=== PATIENT | female | born 1975 | race Two or more races ===

== ENCOUNTER 2016-12-02 23:08 | Emergency (ER) | payer OTHER ==
[2016-12-02 23:40] VITALS: BP 170/90; PULSE 87; BMI 44.1
[2016-12-03 01:17] LABS: BASOPHIL 0.7 % (0-2.0); MCH 28.4 pg (25.7-33.7); MCHC 32.1 g/dl (32.0-36.0); MEAN CELL VOLUME 88.5 fl (80-96); MEAN PLT VOLUME 9.9 fl (7.5-11.1); NEUTROPHILS 71.3 % (42.8-82.8); PLATELET COUNT 145 K/MM3 (134-434); RDW 16.2 % (11.6-15.6); URINE APPEARANCE CLEAR; URINE BILIRUBIN NEGATIVE (NEGATIVE); URINE COLOR COLORLESS; URINE GLUCOSE (UA) 3+ (NEGATIVE); URINE KETONE TRACE (NEGATIVE); URINE NITRITE NEGATIVE (NEGATIVE); URINE UROBILINOGEN NEGATIVE E.U./dl (0.2-1.0); WHITE BLOOD COUNT 7.3 K/mm3 (4.0-10.0)
--- NOTE | 2016-12-03 01:27 | PDOC ---
History of Present Illness - General Chief Complaint: Blood Sugar Problem Stated Complaint: SHORTNESS OF BREATH Time Seen by Provider: 12/03/16 00:34 History Source: Patient Exam Limitations: No Limitations - History of Present Illness Initial Comments: 12/03/16 01:27 41yo Female patient presented to ED via EMS c/o elevated blood sugar level greater than 600. Patient believes her insulin pump was not attached to her skin appropriately and the insulin was not delivered. Patient reports she is ESRD; receives dialysis three times a week MWF. Last treatment on Thursday with 4 L removed. Timing/Duration: unsure Modifying Factors: worse with: cold therapy, eating, immobilization, medication , movement, rest, other Associated Symptoms: denies: denies symptoms, chest pain, cough, diaphoresis, fever/chills, headaches, loss of appetite, malaise, nausea/vomiting, rash, seizure, shortness of breath, syncope, weakness, other Aspirin Received prior to arrival: No: no aspirin today, unknown, 81 mg x 1, 81 mg x 2, 81 mg x 3, 81 mg x 4, 325 mg x 1, provided at home, provided by EMS, provided by ED [facility] Contraindications(Core Measure): No: Allergy, Other, Active Blding w/i 24 hrs., Plavix, Receiving Warfarin Beta Ramila Contraindications(Core Measure): No: Not Prescribed, Allergy, Bradycardia (HR <60bpm), Advanced Heart Block, Pacemaker, Other Past History - Travel Traveled outside of the country in the last 30 days: No Close contact w/someone who was outside of country & ill: No - Past Medical History Allergies/Adverse Reactions: Allergies Allergy/AdvReac Type Severity Reaction Status Date / Time No Known Allergies Allergy Verified 09/26/15 06:22 Home Medications: Ambulatory Orders Calcium Acetate [Phoslo -] 667 mg PO TIDCM 09/17/15 Gabapentin [Neurontin] 0 mg PO HS 09/17/15 Insulin Glulisine [Apidra] 0 unit SQ ASDIR 09/17/15 Levothyroxine [Synthroid -] 50 mcg PO DAILY 09/17/15 Metoprolol Succinate [Toprol XL -] 100 mg PO DAILY 09/17/15 Nifedipine [Nifedical Xl] 60 mg PO DAILY 09/17/15 Azithromycin [Zithromax Z-GIRISH (5 DAYS) -] 250 mg PO ASDIR #6 tablet 09/26/15 Diabetes: Yes Dialysis: Yes (m-w-f) HTN: Yes Thyroid Disease: Yes - Immunization History Immunization Up to Date: Yes - Psycho/Social/Smoking Cessation Hx Anxiety: No Suicidal Ideation: No Smoking History: Never smoked Have you smoked in the past 12 months: No Information on smoking cessation initiated: No Hx Alcohol Use: No Drug/Substance Use Hx: No Substance Use Type: None Review of Systems - Review of Systems Able to Perform ROS?: Yes Is the patient limited Maltese proficient: No Constitutional: No: Chills, Fever HEENTM: Yes: Other (LEGALLY BLIND) Respiratory: No: Cough, Shortness of Breath Cardiac (ROS): No: Chest Pain, Edema ABD/GI: No: Diarrhea, Nausea, Vomiting : No: Burning, Dysuria, Hematuria Musculoskeletal: No: Back Pain Integumentary: No: Bruising, Rash Neurological: No: Headache, Numbness, Dizziness All Other Systems: Reviewed and Negative *Physical Exam - Vital Signs Last Vital Signs Temp Pulse Resp BP Pulse Ox 87 18 170/90 99 12/02/16 23:38 12/02/16 23:38 12/02/16 23:38 12/02/16 23:38 - Physical Exam General Appearance: Yes: Nourished Neck: positive: Trachea midline, Supple Respiratory/Chest: positive: Lungs Clear, Normal Breath Sounds Cardiovascular: positive: Regular Rhythm, Regular Rate Gastrointestinal/Abdominal: positive: Normal Bowel Sounds, Soft Musculoskeletal: positive: Normal Inspection Extremity: positive: Normal Capillary Refill, Normal Inspection, Normal Range of Motion Integumentary: positive: Normal Color, Dry, Warm Neurologic: positive: spray pilot II-XII NML intact, Normal Mood/Affect, Normal Response ED Treatment Course - LABORATORY CBC & Chemistry Diagram: 12/03/16 00:58 12/03/16 00:58 *DC/Admit/Observation/Transfer Diagnosis at time of Disposition: Hyperglycemia due to type 1 diabetes mellitus - Discharge Dispostion Disposition: HOME Condition at time of disposition: Stable Admit: No - Patient Instructions Printed Discharge Instructions: DI for Hyperglycemia -- Adult Additional Instructions: CONTINUE WITH DIALYSIS SCHEDULED. ALWAYS CHECK THAT INSULIN PUMP IS ATTACHED AND WORKING PROPERLY. RETURN IF ANY CONCERNS FOR FURTHER EVALUATION. Print Language: FILIPINO
[2016-12-03 01:57] LABS: ALBUMIN 3.7 g/dl (3.4-5.0); BILIRUBIN,TOTAL 0.6 mg/dL (0.2-1.0); CALCIUM 8.4 mg/dL (8.5-10.1); MAGNESIUM 2.3 mg/dL (1.8-2.4); PHOSPHOROUS 3.1 mg/dL (2.5-4.9); TOT PROT 7.2 g/dl (6.4-8.2)
[2016-12-03 02:03] LABS: URINE BLOOD 1+ (NEGATIVE); URINE LEUK ESTERASE 1+ (NEGATIVE); URINE PROTEIN 1+ (NEGATIVE)
--- NOTE | 2016-12-03 02:09 | PDOC ---
*Physical Exam - Vital Signs Last Vital Signs Temp Pulse Resp BP Pulse Ox 87 18 170/90 99 12/02/16 23:38 12/02/16 23:38 12/02/16 23:38 12/02/16 23:38 ED Treatment Course - LABORATORY CBC & Chemistry Diagram: 12/03/16 00:58 12/03/16 00:58 - ADDITIONAL ORDERS Additional order review: Laboratory Results 12/03/16 12/03/16 00:58 00:58 Serum , Qual Negative Urine Color Colorless Urine Appearance Clear Urine pH 8.0 Ur Specific Marshall 1.010 Urine Protein 1+ H Urine Glucose (UA) 3+ H Urine Ketones Trace H Urine Blood 1+ H Urine Nitrite Negative Urine Bilirubin Negative Urine Urobilinogen Negative Ur Leukocyte Esterase 1+ H 12/03/16 00:58 RBC 3.76 MCV 88.5 MCHC 32.1 RDW 16.2 H MPV 9.9 Neutrophils % 71.3 Lymphocytes % 19.9 D Monocytes % 7.1 Eosinophils % 1.0 Basophils % 0.7 Medical Decision Making - Medical Decision Making 12/03/16 02:08 agree with care from SANAM Geiger *DC/Admit/Observation/Transfer Diagnosis at time of Disposition: Hyperglycemia due to type 1 diabetes mellitus - Discharge Dispostion Disposition: HOME Condition at time of disposition: Stable - Patient Instructions Printed Discharge Instructions: DI for Hyperglycemia -- Adult Additional Instructions: CONTINUE WITH DIALYSIS SCHEDULED. ALWAYS CHECK THAT INSULIN PUMP IS ATTACHED AND WORKING PROPERLY. RETURN IF ANY CONCERNS FOR FURTHER EVALUATION. Print Language: SPANISH
[2016-12-03 02:18] LABS: CREATININE 8.9 mg/dL (0.55-1.02)
[2016-12-03 02:36] LABS: URINE MUCUS RARE; URINE WBC 9 /hpf (3-5)
[2016-12-03] MEDS ORDERED: INSULIN REGULAR HUMAN 100 UNITS/ML *VIAL SQ ONE (02:51)
[2016-12-03] MEDS ORDERED: INSULIN REGULAR HUMAN 100 UNITS/ML *VIAL ONE (02:58)
== END 2016-12-03 03:07 | disposition home or self-care (01) ==
LOC: JER 23:08
PROC: 3E013VG Introduction of Insulin into Subcutaneous Tissue, Percutaneous Approach (ICD-10-PCS; principal; 2016-12-02)
DX: E10.65 Type 1 diabetes mellitus with hyperglycemia (principal); Z79.4 Long term (current) use of insulin; Z96.41 Presence of insulin pump (external) (internal); I12.0 Hypertensive chronic kidney disease with stage 5 chronic kidney disease or end stage renal disease; N18.6 End stage renal disease; Z99.2 Dependence on renal dialysis; E07.9 Disorder of thyroid, unspecified
CPT/HCPCS: 36415; 80053; 81003; 81015; 83735; 84100; 84703; 85025; 96372; 99282-25

== ENCOUNTER 2017-02-03 14:06 | Observation (INO) | payer OTHER ==
[2017-02-03] MEDS ORDERED: ASPIRIN 81 MG CHEWABLE TABLETS PO ONE (14:48)
--- NOTE | 2017-02-03 14:53 | PDOC ---
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 She states that since Thursday, she has been experiencing intermittent mid-sternal hot-pressure/discomfort sensations that occasionally radiates to her back with associated lightheadedness, diaphoresis, palpitations and nausea. Initially, she attributed her symptoms to possible start of menopause, but now expresses concern her symptoms might be related to something different. She denies associated symptoms cough, fever, chills, headaches, neck pain, vomiting. Patient received full dialysis yesterday without complications, yesterday. She also reports her chronic shortness of breath on exertion, particularly when walking up a flight of stairs, but denies any recent change in her chronic symptoms. No leg pain/swelling. Allergies: No Known Drug Allergies. Past Surgical History: AV Fistula/Graft Social History: No ETOH and recreational drug use. Primary Care Physician: (Affiliated with [facility]) Nephrology: Receives hemodialysis in [place] on [address] [place] [address]. [phone] Remainder of the review of systems is negative. <Alee Maldonado - Last Filed: 02/03/17 14:55> <Catalina Willard - Last Filed: 02/03/17 22:38> - General Chief Complaint: Chest Pain Stated Complaint: CHEST PAIN Time Seen by Provider: 02/03/17 14:31 Past History <Alee Maldonado - Last Filed: 02/03/17 16:05> - Past Medical History Diabetes: Yes Dialysis: Yes (m-w-f) Disorders: Yes (esrd) HTN: Yes Thyroid Disease: Yes Other medical history: legally blind - Immunization History Immunization Up to Date: Yes - Psycho/Social/Smoking Cessation Hx Anxiety: Yes Suicidal Ideation: No Smoking History: Never smoked Have you smoked in the past 12 months: No Information on smoking cessation initiated: No Hx Alcohol Use: No Drug/Substance Use Hx: No Substance Use Type: None <Catalina Willard - Last Filed: 02/03/17 22:38> - Past Medical History Allergies/Adverse Reactions: Allergies Allergy/AdvReac Type Severity Reaction Status Date / Time No Known Allergies Allergy Verified 02/03/17 14:40 Home Medications: Ambulatory Orders Calcium Acetate [Phoslo -] 667 mg PO TID 09/17/15 Gabapentin [Neurontin] 100 mg PO DAILY 09/17/15 Levothyroxine [Synthroid -] 75 mcg PO DAILY 09/17/15 Carvedilol [Coreg -] 6.25 mg PO DAILY 02/03/17 Insulin Pump/Infus. Set/Meter [Accu-Chek Combo System] 1 each [facility] 02/03/17 Review of Systems - Review of Systems Able to Perform ROS?: Yes Comments:: 02/03/17 14:55 12 point review of systems is as per history of present illness and otherwise negative. <Alee Maldonado - Last Filed: 02/03/17 16:05> *Physical Exam - Vital Signs Last Vital Signs Temp Pulse Resp BP Pulse Ox 98.1 F 62 18 120/90 100 02/03/17 14:06 02/03/17 14:06 02/03/17 14:06 02/03/17 14:06 02/03/17 14:06 <Alee Maldonado - Last Filed: 02/03/17 16:05> - Vital Signs Last Vital Signs Temp Pulse Resp BP Pulse Ox 98.1 F 62 18 120/90 100 02/03/17 14:06 02/03/17 14:06 02/03/17 14:06 02/03/17 14:06 02/03/17 14:06 - Physical Exam Comments: 02/03/17 14:52 Physical exam Last Vital Signs Temp Pulse Resp BP Pulse Ox 98.1 F 62 18 120/90 100 02/03/17 14:06 02/03/17 14:06 02/03/17 14:06 02/03/17 14:06 02/03/17 14:06 GENERAL: The patient is awake, alert, and fully oriented, and in no apparent distress. HEAD: Normal with no signs of trauma. EYES: Sclera anicteric ENT: Moist mucous membranes. NECK: Normal range of motion, supple LUNGS: Breath sounds equal, clear to auscultation bilaterally. No wheezes, and no crackles. HEART: Regular rate and rhythm, normal S1 and S2 without murmur, rub or gallop. ABDOMEN: Soft, nontender, normoactive bowel sounds. No guarding, no rebound. No masses appreciated. EXTREMITIES: Normal range of motion, no edema. No clubbing or cyanosis. No cords, erythema, or tenderness. NEUROLOGICAL: Cranial nerves II through XII grossly intact. Normal speech, normal gait. PSYCH: Normal mood, normal affect. SKIN: Warm, Dry, <Catalina Willard - Last Filed: 02/03/17 22:38> ED Treatment Course - LABORATORY CBC & Chemistry Diagram: 02/03/17 15:45 02/03/17 15:45 <Alee Maldonado - Last Filed: 02/03/17 16:05> - LABORATORY CBC & Chemistry Diagram: 02/03/17 15:45 02/03/17 17:15 - RADIOLOGY Radiology Studies Ordered: Category Date Time Status CHEST X-RAY PORTABLE* [RAD] Stat Radiology 02/03/17 14:47 Ordered <Catalina Willard - Last Filed: 02/03/17 22:38> Medical Decision Making - Medical Decision Making 02/03/17 16:04 EXAM: RAD/CHEST X-RAY PORTABLE IMPRESSION: Single portable chest x-ray. Unremarkable contour of the cardiomediastinal silhouette. The lungs are well aerated. No evidence of vascular congestion, pulmonary infiltrates. No bulky hilar adenopathy is seen. No evidence of pleural effusion, or pneumothorax. EKG leads are noted. Intact visualized osseous structures. <Alee Maldonado - Last Filed: 02/03/17 16:05> - Medical Decision Making 02/03/17 14:49 Juvenile onset diabetic since the age of 17, with multiple complications, including CKD on dialysis Thursday and Thursday, retinopathy (legally blind), neuropathy, hypertension, who is on an insulin pump at this time She's been having episodes of chest discomfort which she describes as a hot feeling across her chest associated with chest pressure, and sometimes radiating to her back off and on since Thursday associated with diaphoresis, and feelings of dizziness and lightheadedness, as well as occasional palpitations She denies any recent intercurrent illnesses, fevers chills cough or any other associated complaints EKG Normal sinus rhythm 61, normal axis Normal AV and IV conduction time Normal QTC Normal EKG 41-year-old female with significant cardiac risk factors presents with chest discomfort off and on, will start cardiac workup, and give her aspirin 02/03/17 15:52 Chest x-ray-NAD 02/03/17 16:51 41-year-old female with multiple cardiac risk factors presents with chest pain/ pressure off and on Will place in observation, for serial enzymes, and cardiac workup, given her multiple cardiac risk factors 02/03/17 17:03 Labs hemolyzed and needs redraw per lab Laboratory Results - last 24 hr 02/03/17 02/03/17 02/03/17 15:45 15:45 17:15 WBC 6.4 RBC 3.87 Hgb 11.6 Hct 34.4 MCV 89.1 MCHC 33.6 RDW 16.0 H Plt Count 164 MPV 10.1 Sodium Cancelled 137 Potassium Cancelled 4.2 Chloride Cancelled 97 L Carbon Dioxide Cancelled 29 D Anion Gap Cancelled 11 BUN Cancelled 48 H D Creatinine Cancelled 8.3 H* Creat Clearance w eGFR Cancelled 5.34 Random Glucose Cancelled 149 H D Calcium Cancelled 8.7 Magnesium Cancelled Total Bilirubin Cancelled 0.5 AST Cancelled 15 ALT Cancelled 26 D Alkaline Phosphatase Cancelled 80 Creatine Kinase Cancelled 80 Troponin I Cancelled < 0.02 B-Natriuretic Peptide Cancelled 1433.44 H Total Protein Cancelled 7.1 Albumin Cancelled 3.6 <Catalina Willard - Last Filed: 02/03/17 22:38> *DC/Admit/Observation/Transfer - Attestations Scribe Attestion: 02/03/17 14:55 Documentation prepared by Alee Maldonado, acting as medical records technician for Catalina Willard MD. <Alee Maldonado - Last Filed: 02/03/17 16:05> - Discharge Dispostion Admit: Yes <Catalina Willard - Last Filed: 02/03/17 22:38> Diagnosis at time of Disposition: Chest pain, ESRD (end stage renal disease) on dialysis, Diabetes mellitus
[2017-02-03] MEDS ORDERED: ASPIRIN 81 MG CHEWABLE TABLETS ONE (15:20)
[2017-02-03 16:57] LABS: MCHC 33.6 g/dl (32.0-36.0); MEAN CELL VOLUME 89.1 fl (80-96); MEAN PLT VOLUME 10.1 fl (7.5-11.1); PLATELET COUNT 164 K/MM3 (134-434); WHITE BLOOD COUNT 6.4 K/mm3 (4.0-10.0)
--- NOTE | 2017-02-03 17:58 | EKG ---
Test Reason : Blood Pressure : / mmHG Vent. Rate : 061 BPM Atrial Rate : 061 BPM P-R Int : 128 ms QRS Dur : 070 ms QT Int : 430 ms P-R-T Axes : 035 055 048 degrees QTc Int : 432 ms NORMAL SINUS RHYTHM NORMAL ECG WHEN COMPARED WITH ECG OF 17-SEP-2015 08:35, NO SIGNIFICANT CHANGE WAS FOUND Confirmed by ANURAG BANDA MD ([id number]) on 02/03/2017 5:57:54 PM Referred By: Confirmed By:ANURAG BANDA MD
--- NOTE | 2017-02-03 18:01 | HP ---
CHIEF COMPLAINT: Mid sternal chest pressure, non radiating that feels "like burning and pressure". PCP: Dr. Livier Hutchison MD ([facility]) Nephrology: Receives hemodialysis in [place] on [address] [place] [address]. HISTORY OF PRESENT ILLNESS: Patient is a 41 year old female with a significant past medical history of hypertension, hyperlipidemia, heart murmur, neuropathy, insulin-dependent diabetes mellitus end-renal disease (on hemodialysis; MWF), ( last dialysis was yesterday 02/02/2017), hypothyroidism and is legally blind. She presented to the ED for chest pain. She states that since 01/31/17, she has been experiencing intermittent mid-sternal "burning discomfort" sensations that occasionally radiates to her back and left arm associated with diaphoresis, palpitations and nausea. She denies any fever, chills, headaches, neck pain, jaw pain. Her last dialysis was yesterday without complications. She is scheduled for dialysis tomorrow. She receives dialysis through her left arm fistula ER course was notable for: (1) BNP 1433 (2) Trop 0.02 (3) Bun 48/Creatinine 8.3 (4) implanted insulin pump Recent Travel: none PAST MEDICAL HISTORY: hypertension, hyperlipidemia, heart murmur, neuropathy, insulin-dependent diabetes mellitus end-renal disease (on hemodialysis; MWF), ( last dialysis was yesterday), hypothyroidism and legally blindness. PAST SURGICAL HISTORY: left arm fisula, insulin pump placement, Social History: Smoking: denies Alcohol: denies Drugs: denies Family History: She is , lives with her , no children. Mother is alive, father . Allergies: none reported No Known Allergies Allergy (Verified 02/03/17 14:40) HOME MEDICATIONS: Home Medications Medication Instructions Recorded Calcium Acetate [Phoslo -] 667 mg PO TIDCM 09/17/15 Gabapentin [Neurontin] 0 mg PO HS 09/17/15 Insulin Glulisine [Apidra] 0 unit SQ ASDIR 09/17/15 Levothyroxine [Synthroid -] 50 mcg PO DAILY 09/17/15 Metoprolol Succinate [Toprol XL -] 100 mg PO DAILY 09/17/15 Nifedipine [Nifedical Xl] 60 mg PO DAILY 09/17/15 Azithromycin [Zithromax Z-GIRISH (5 250 mg PO ASDIR #6 tablet 09/26/15 DAYS) -] REVIEW OF SYSTEMS CONSTITUTIONAL: Absent: fever, chills, diaphoresis, generalized weakness, malaise, loss of appetite, HEENT: Absent: rhinorrhea, nasal congestion, throat pain, throat swelling, difficulty swallowing, mouth swelling, ear pain, eye pain, visual changes CARDIOVASCULAR: Absent: chest pain, syncope, palpitations, irregular heart rate, peripheral edema RESPIRATORY: + intermittent SOB, + dyspnea on exertion Absent: cough, orthopnea, wheezing, stridor, hemoptysis GASTROINTESTINAL: Absent: abdominal pain, abdominal distension, nausea, vomiting, diarrhea, constipation, melena, hematochezia GENITOURINARY: Absent: dysuria, frequency, urgency, hesitancy, hematuria, flank pain, genital pain MUSCULOSKELETAL: Absent: myalgia, arthralgia, joint swelling, back pain, neck pain SKIN: Absent: rash, itching, pallor HEMATOLOGIC/IMMUNOLOGIC: Absent: easy bleeding, easy bruising, lymphadenopathy, frequent infections ENDOCRINE: Absent: unexplained weight gain, unexplained weight loss, heat intolerance, cold intolerance NEUROLOGIC: Absent: headache, focal weakness or paresthesias, dizziness, unsteady gait, seizure, mental status changes, bladder or bowel incontinence PSYCHIATRIC: Absent: anxiety, depression, suicidal or homicidal ideation, hallucinations. PHYSICAL EXAMINATION Vital Signs - 24 hr 02/03/17 14:06 Temperature 98.1 F Pulse Rate 62 Respiratory 18 Rate Blood Pressure 120/90 O2 Sat by Pulse 100 Oximetry (%) GENERAL: Awake, alert, and fully oriented, in no acute distress. HEAD: Normal with no signs of trauma. EYES: legally blind secondary to diabethic retinopathy EARS, NOSE, THROAT: Ears normal, nares patent, oropharynx clear without exudates. Moist mucous membranes. NECK: Normal range of motion, supple without lymphadenopathy, JVD, or masses. LUNGS: Breath sounds equal, clear to auscultation bilaterally. No wheezes, and no crackles. No accessory muscle use. HEART: Regular rate and rhythm, +murmur ABDOMEN: Soft, nontender, not distended, normoactive bowel sounds, + insulin pump MUSCULOSKELETAL: Normal range of motion at all joints. No bony deformities or tenderness. No CVA tenderness. UPPER EXTREMITIES: Left arm fistula + bruit + thrill LOWER EXTREMITIES: 2+ pulses, warm, well-perfused. No calf tenderness. No peripheral edema. NEUROLOGICAL: Normal speech. Normal gait. PSYCHIATRIC: Cooperative. Good eye contact. Appropriate mood and affect. SKIN: Warm, dry, normal turgor, no rashes or lesions noted. Laboratory Results - last 24 hr 02/03/17 02/03/17 15:45 15:45 WBC 6.4 RBC 3.87 Hgb 11.6 Hct 34.4 MCV 89.1 MCHC 33.6 RDW 16.0 H Plt Count 164 MPV 10.1 Sodium Cancelled Potassium Cancelled Chloride Cancelled Carbon Dioxide Cancelled Anion Gap Cancelled BUN Cancelled Creatinine Cancelled Creat Clearance w eGFR Cancelled Random Glucose Cancelled Calcium Cancelled Magnesium Cancelled Total Bilirubin Cancelled AST Cancelled ALT Cancelled Alkaline Phosphatase Cancelled Creatine Kinase Cancelled Troponin I Cancelled B-Natriuretic Peptide Cancelled Total Protein Cancelled Albumin Cancelled ASSESSMENT/PLAN: Patient is a 41 year old female with a significant past medical history of hypertension, hyperlipidemia, heart murmur, neuropathy, insulin-dependent diabetes mellitus end-renal disease (on hemodialysis; MWF), (last dialysis was yesterday 02/02/2017), hypothyroidism and legally blindness. She presented to the ED for chest pain. She states that since 01/31/17, she has been experiencing intermittent mid-sternal "burning discomfort" sensations that occasionally radiates to her back and left arm associated with diaphoresis, palpitations and nausea. She denies any fever, chills, headaches, neck pain, jaw pain. Her last dialysis was yesterday without complications. She is scheduled for dialysis tomorrow. She receives dialysis through her left arm fistula. On exam, she denied shortness of breath, jaw pain. Cardiology: Chest Pain - acute Assessment/Plan: EKG 02/03/2017, Normal sinus rhythm @61, no changes when compared to EKG of 09/17/2015 Troponin x 1 negative, trending Will start on ASA 81mg Echo ordered for a.m. Oxygen as needed Monitor on telemetry Cardiology consulted Hypertension - chronic Assessment/Plan: BP controlled on Carvedilol 6.5mg daily Monitor BP trend, titrate as needed Hyperlipidemia - chronic Assessment/Plan: Lipid panel in the a.m. Endocrine: End Stage Renal Disease Assessment/Plan: on a MWF dialysis schedule, last dialysis without complications Receives dialysis from left arm fistula Dr. 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 Although legally blind, she has managed her own insulin pump She has a history of falls F.E.N. Fluids: no IVF, can take PO Electrolytes: monitor: renal patient, phos levels ordered for a.m. Nutrition: diabetic diet Prophylaxis: GI: Protonix, Colace DVT: Heparin TID Disposition: Requires inpatient tele observation. Full Code. Visit type - Emergency Visit Emergency Visit: Yes ED Registration Date: 02/03/17 Care time: The patient presented to the Emergency Department on the above date and was hospitalized for further evaluation of their emergent condition. - New Patient This patient is new to me today: Yes Date on this admission: 02/03/17 - Critical Care Critical Care patient: No
[2017-02-03 18:20] LABS: ALBUMIN 3.6 g/dl (3.4-5.0); ALK PHOS 80 U/L (45-117); ANION GAP 11 (8-16); BILIRUBIN,TOTAL 0.5 mg/dL (0.2-1.0); CALCIUM 8.7 mg/dL (8.5-10.1); CO2 29 mmol/L (21-32); GLUCOSE,RANDOM 149 mg/dL (74-106); SGOT/AST 15 U/L (15-37); SGPT/ALT 26 U/L (12-78); TOT PROT 7.1 g/dl (6.4-8.2)
[2017-02-03 18:25] LABS: TROPONIN I < 0.02 ng/ml (0.00-0.05)
[2017-02-03 18:29] LABS: CREATININE 8.3 mg/dL (0.55-1.02)
[2017-02-03] MEDS ORDERED: PATIENT'S OWN MEDICATION (NON-FORMULARY) (Insulin Pump/Infus. Set/Meter [Accu-Chek Combo S MC SCH (20:00)
[2017-02-03] MEDS ORDERED: CALCIUM ACETATE 667 MG CAPSULE (FP) PO SCH (22:00)
[2017-02-03] MEDS: HEPARIN NA (PORCINE) 5,000 UNITS/ML 1ML VIAL SQ SCH (22:57)
[2017-02-03 23:16] LABS: TROPONIN I < 0.02 ng/ml (0.00-0.05)
[2017-02-04 04:24] VITALS: BMI 42.8
[2017-02-04] MEDS: HEPARIN NA (PORCINE) 5,000 UNITS/ML 1ML VIAL SQ SCH ×3 (06:29→21:10)
[2017-02-04] MEDS ORDERED: LEVOTHYROXINE NA 75 MCG TABLET (FP) PO SCH (07:00)
[2017-02-04 08:13] LABS: BASOPHIL 0.5 % (0-2.0); EOSINOPHIL 1.9 % (0-4.5); MCH 29.6 pg (25.7-33.7); MCHC 33.5 g/dl (32.0-36.0); MEAN CELL VOLUME 88.6 fl (80-96); MEAN PLT VOLUME 9.7 fl (7.5-11.1); NEUTROPHILS 58.9 % (42.8-82.8); PLATELET COUNT 129 K/MM3 (134-434); RDW 16.5 % (11.6-15.6); WHITE BLOOD COUNT 5.2 K/mm3 (4.0-10.0)
[2017-02-04] MEDS ORDERED: LEVOTHYROXINE NA 88 MCG TABLET (FP) PO SCH (08:37)
[2017-02-04] MEDS: CALCIUM ACETATE 667 MG CAPSULE (FP) PO SCH ×3 (09:05→18:48)
--- NOTE | 2017-02-04 09:11 | PN ---
Physical Exam: SUBJECTIVE: Patient seen and examined OBJECTIVE: Vital Signs Period Temp Pulse Resp BP Sys/Aponte Pulse Ox Last 24 Hr 97.5 F-97.8 F 60-84 18-20 118-144/52-76 96-100 GENERAL: The patient is awake, alert, and fully oriented, in no acute distress. HEAD: Normal with no signs of trauma. EYES: PERRL, extraocular movements intact, sclera anicteric, conjunctiva clear. No ptosis. ENT: Ears normal, nares patent, oropharynx clear without exudates, moist mucous membranes. NECK: Trachea midline, full range of motion, supple. LUNGS: Breath sounds equal, clear to auscultation bilaterally, no wheezes, no crackles, no accessory muscle use. HEART: Regular rate and rhythm, S1, S2 without murmur, rub or gallop. ABDOMEN: Soft, nontender, nondistended, normoactive bowel sounds, no guarding, no rebound, no hepatosplenomegaly, no masses. EXTREMITIES: 2+ pulses, warm, well-perfused, no edema. NEUROLOGICAL: Cranial nerves II through XII grossly intact. Normal speech, gait not observed. PSYCH: Normal mood, normal affect. SKIN: Warm, dry, normal turgor, no rashes or lesions noted Laboratory Results - last 24 hr 02/03/17 02/03/17 02/03/17 17:15 20:28 22:00 WBC RBC Hgb Hct MCV MCHC RDW Plt Count MPV Neutrophils % Lymphocytes % Monocytes % Eosinophils % Basophils % Sodium 137 Potassium 4.2 Chloride 97 L Carbon Dioxide 29 D Anion Gap 11 BUN 48 H D Creatinine 8.3 H* Creat Clearance w eGFR 5.34 Random Glucose 149 H D Calcium 8.7 Total Bilirubin 0.5 AST 15 ALT 26 D Alkaline Phosphatase 80 Creatine Kinase 80 68 Troponin I < 0.02 < 0.02 B-Natriuretic Peptide 1433.44 H Total Protein 7.1 Albumin 3.6 TSH 3.90 H 02/03/17 02/04/17 22:00 05:45 WBC 5.2 RBC 3.69 Hgb 10.9 Hct 32.6 MCV 88.6 MCHC 33.5 RDW 16.5 H Plt Count 129 L D MPV 9.7 Neutrophils % 58.9 Lymphocytes % 31.6 D Monocytes % 7.1 Eosinophils % 1.9 D Basophils % 0.5 Sodium Potassium Chloride Carbon Dioxide Anion Gap BUN Creatinine Creat Clearance w eGFR Random Glucose Calcium Total Bilirubin AST ALT Alkaline Phosphatase Creatine Kinase Troponin I < 0.02 B-Natriuretic Peptide Total Protein Albumin TSH Active Medications Generic Name Dose Route Start Last Admin Trade Name Freq PRN Reason Stop Dose Admin Aspirin 81 mg 02/04/17 10:00 Ecotrin - PO DAILY [facility] Calcium Acetate 667 mg 02/04/17 08:00 Phoslo - PO TIDCM [facility] Carvedilol 6.25 mg 02/04/17 10:00 Coreg - PO DAILY [facility] Gabapentin 100 mg 02/04/17 10:00 Neurontin - PO DAILY [facility] Heparin Sodium (Porcine) 5,000 unit 02/03/17 22:00 02/04/17 06:29 Heparin - SQ Not Given TID [facility] Levothyroxine Sodium 88 mcg 02/04/17 08:37 Synthroid - PO DAILY@0700 [facility] ASSESSMENT/PLAN:
[2017-02-04 09:17] LABS: ALBUMIN 3.4 g/dl (3.4-5.0); BILIRUBIN,TOTAL 0.4 mg/dL (0.2-1.0); CALCIUM 8.9 mg/dL (8.5-10.1); MAGNESIUM 2.3 mg/dL (1.8-2.4); PHOSPHOROUS 4.2 mg/dL (2.5-4.9); TOT PROT 6.7 g/dl (6.4-8.2)
[2017-02-04 09:36] LABS: TROPONIN I < 0.02 ng/ml (0.00-0.05)
[2017-02-04] MEDS: ASPIRIN COATED 81 MG TABLET.EC PO SCH (10:05)
[2017-02-04] MEDS: GABAPENTIN 100 MG CAPSULE (FP) PO SCH (10:05)
[2017-02-04] MEDS: CARVEDILOL 6.25 MG TABLET (FP) PO SCH (10:05)
[2017-02-04 10:13] LABS: CREATININE 9.5 mg/dL (0.55-1.02)
--- NOTE | 2017-02-04 10:30 | CON.CARD ---
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 She states that since Thursday, she has been experiencing intermittent mid-sternal hot-pressure/discomfort sensations that occasionally radiates to her back with associated lightheadedness, diaphoresis, palpitations and nausea. Initially, she attributed her symptoms to possible start of menopause, but now expresses concern her symptoms might be related to something different. She denies associated symptoms cough, fever, chills, headaches, neck pain, vomiting. Patient received full dialysis yesterday without complications, yesterday. 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) Cardio/Vascular: Yes: HTN Renal/: Yes: Renal Failure, Hemodialysis ...: No Endocrine: Yes: Diabetes Mellitus, Hypothyroidism - Past Surgical History Past Surgical History: Yes: AV Fistula/Graft - Alcohol/Substance Use Hx Alcohol Use: No History of Substance Use: reports: None - Smoking History Smoking history: Never smoked Have you smoked in the past 12 months: No Home Medications - Allergies Allergies/Adverse Reactions: Allergies Allergy/AdvReac Type Severity Reaction Status Date / Time No Known Allergies Allergy Verified 02/03/17 14:40 - Home Medications Home Medications: Ambulatory Orders Calcium Acetate [Phoslo -] 667 mg PO TID 09/17/15 Gabapentin [Neurontin] 100 mg PO DAILY 09/17/15 Levothyroxine [Synthroid -] 75 mcg PO DAILY 09/17/15 Carvedilol [Coreg -] 6.25 mg PO DAILY 02/03/17 Insulin Pump/Infus. Set/Meter [Accu-Chek Combo System] 1 each MC ASDIR 02/03/17 Review of Systems - Review of Systems Constitutional: reports: No Symptoms Eyes: reports: No Symptoms HENT: reports: No Symptoms Neck: reports: No Symptoms Cardiovascular: reports: No Symptoms Gastrointestinal: reports: No Symptoms Genitourinary: reports: No Symptoms Breasts: reports: No Symptoms Reported Musculoskeletal: reports: No Symptoms Integumentary: reports: No Symptoms Neurological: reports: No Symptoms Endocrine: reports: No Symptoms Hematology/Lymphatic: reports: No Symptoms Psychiatric: reports: No Symptoms Vital Signs: Vital Signs Temperature 97.5 F L 02/04/17 02:00 Pulse Rate 65 02/04/17 10:00 Respiratory Rate 18 02/04/17 10:00 Blood Pressure 126/69 02/04/17 10:00 O2 Sat by Pulse Oximetry (%) 96 02/03/17 23:00 Constitutional: Yes: Well Nourished, No Distress, Calm Eyes: Yes: WNL, Conjunctiva Clear, EOM Intact HENT: Yes: WNL, Atraumatic, Normocephalic Neck: Yes: WNL, Supple, Trachea Midline Respiratory: Yes: WNL, Regular, CTA Bilaterally Gastrointestinal: Yes: WNL, Normal Bowel Sounds Renal/: Yes: WNL Cardiovascular: Yes: WNL, Regular Rate and Rhythm Musculoskeletal: Yes: WNL Extremities: Yes: WNL Integumentary: Yes: WNL Neurological: Yes: WNL, Alert, Oriented ...Motor Strength: WNL Psychiatric: Yes: WNL, Alert, Oriented - Other Data Labs, Other Data: CBC, BMP 02/04/17 05:45 02/04/17 05:45 Troponin, BNP 02/03/17 02/03/17 02/03/17 17:15 20:28 22:00 Troponin I < 0.02 < 0.02 < 0.02 B-Natriuretic Peptide 1433.44 H 02/04/17 05:45 Troponin I < 0.02 B-Natriuretic Peptide Troponin, BNP 02/03/17 02/03/17 02/03/17 17:15 20:28 22:00 Troponin I < 0.02 < 0.02 < 0.02 B-Natriuretic Peptide 1433.44 H 02/04/17 05:45 Troponin I < 0.02 B-Natriuretic Peptide Imaging - Results Chest X-ray: Image Reviewed (no i/e) EKG: Image Reviewed (sr wnl) Problem List - Problems (1) Chest pain Code(s): R07.9 - CHEST PAIN, UNSPECIFIED (2) Diabetes mellitus Code(s): E11.9 - TYPE 2 DIABETES MELLITUS WITHOUT COMPLICATIONS (3) ESRD (end stage renal disease) on dialysis Code(s): N18.6 - END STAGE RENAL DISEASE Z99.2 - DEPENDENCE ON RENAL DIALYSIS (4) Abrasion Code(s): T14.8 - OTHER INJURY OF UNSPECIFIED BODY REGION (5) Anemia Code(s): D64.9 - ANEMIA, UNSPECIFIED (6) Cold (disease) Code(s): J00 - ACUTE NASOPHARYNGITIS [COMMON COLD] (7) Dialysis complication Code(s): T82.898A - OTH COMPLICATION OF VASCULAR PROSTH DEV/GRFT, INIT Qualifiers: Encounter type: initial encounter Qualified Code(s): T82.898A - Other specified complication of vascular prosthetic devices, implants and grafts, initial encounter (8) Hyperglycemia due to type 1 diabetes mellitus Code(s): E10.65 - TYPE 1 DIABETES MELLITUS WITH HYPERGLYCEMIA (9) Hypertension Code(s): I10 - ESSENTIAL (PRIMARY) HYPERTENSION (10) Hypothyroid Code(s): E03.9 - HYPOTHYROIDISM, UNSPECIFIED Assessment/Plan chest pain sx esrd htn legal blindness DM - juvenile onset hld neuropathy Plan cont asa r/o mi echo MIBI stress test in am for risk stratification.
--- NOTE | 2017-02-04 13:21 | CONSULT ---
Consult Consult Specialty:: Nephrology Reason for Consultation:: ESRD - History of Present Illness Chief Complaint: chest pain History of Present Illness: Pt is a 41 year old female with pmhx of ESRD, chol, neuropathy and DM who presents to the ER complaining of chest pain. She says she had the pain since Thursday. She denies palpitations. She describes the pain as a burning sensation. She is awake and alert. I was called to evaluate her for ESRD. She last went to HD on Thursday. Her HD unit is in [place]. She denies shortness of breath. 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) Cardio/Vascular: Yes: HTN Renal/: Yes: Renal Failure, Hemodialysis ...: No Endocrine: Yes: Diabetes Mellitus, Hypothyroidism - Past Surgical History Past Surgical History: Yes: AV Fistula/Graft - Alcohol/Substance Use Hx Alcohol Use: No History of Substance Use: reports: None - Smoking History Smoking history: Never smoked Have you smoked in the past 12 months: No Home Medications - Allergies Allergies/Adverse Reactions: Allergies Allergy/AdvReac Type Severity Reaction Status Date / Time No Known Allergies Allergy Verified 02/03/17 14:40 - Home Medications Home Medications: Ambulatory Orders Calcium Acetate [Phoslo -] 667 mg PO TID 09/17/15 Gabapentin [Neurontin] 100 mg PO DAILY 09/17/15 Levothyroxine [Synthroid -] 75 mcg PO DAILY 09/17/15 Carvedilol [Coreg -] 6.25 mg PO DAILY 02/03/17 Insulin Pump/Infus. Set/Meter [Accu-Chek Combo System] 1 each ASDIR 02/03/17 Family Disease History - Family Disease History Other Family History: dm Review of Systems - Review of Systems Constitutional: reports: No Symptoms Eyes: reports: Other (legaly blind) HENT: reports: No Symptoms Neck: reports: No Symptoms Cardiovascular: reports: Chest Pain Respiratory: reports: No Symptoms Gastrointestinal: reports: No Symptoms Genitourinary: reports: No Symptoms Musculoskeletal: reports: No Symptoms Integumentary: reports: No Symptoms Neurological: reports: No Symptoms Endocrine: reports: No Symptoms Hematology/Lymphatic: reports: No Symptoms Psychiatric: reports: No Symptoms Physical Exam Vital Signs: Vital Signs Temperature 97.5 F L 02/04/17 02:00 Pulse Rate 65 02/04/17 10:00 Respiratory Rate 18 02/04/17 10:00 Blood Pressure 126/69 02/04/17 10:00 O2 Sat by Pulse Oximetry (%) 96 02/03/17 23:00 Constitutional: Yes: Calm Cardiovascular: Yes: S1, S2 Respiratory: Yes: CTA Bilaterally Gastrointestinal: Yes: Soft, Abdomen, Obese Musculoskeletal: Yes: WNL Edema: No Neurological: Yes: Oriented Psychiatric: Yes: Oriented Labs: CBC, BMP 02/04/17 05:45 02/04/17 05:45 Laboratory Tests 02/03/17 02/03/17 02/03/17 15:45 17:15 20:28 WBC 6.4 Hgb 11.6 Sodium Potassium Chloride Carbon Dioxide Anion Gap BUN 48 H D Creatinine 8.3 H* Random Glucose Troponin I < 0.02 02/03/17 02/04/17 02/04/17 22:00 05:45 05:45 WBC 5.2 Hgb 10.9 Sodium Potassium Chloride Carbon Dioxide Anion Gap BUN Creatinine Random Glucose Troponin I < 0.02 < 0.02 02/04/17 05:45 WBC Hgb Sodium 137 Potassium 4.4 Chloride 100 Carbon Dioxide 26 Anion Gap 11 BUN 57 H Creatinine 9.5 H* Random Glucose 231 H D Troponin I Imaging - Results Chest X-ray: Report Reviewed Problem List - Problems (1) Chest pain Code(s): R07.9 - CHEST PAIN, UNSPECIFIED (2) Diabetes mellitus Code(s): E11.9 - TYPE 2 DIABETES MELLITUS WITHOUT COMPLICATIONS (3) ESRD (end stage renal disease) on dialysis Code(s): N18.6 - END STAGE RENAL DISEASE Z99.2 - DEPENDENCE ON RENAL DIALYSIS (4) Anemia Code(s): D64.9 - ANEMIA, UNSPECIFIED (5) Hypertension Code(s): I10 - ESSENTIAL (PRIMARY) HYPERTENSION (6) Hypothyroid Code(s): E03.9 - HYPOTHYROIDISM, UNSPECIFIED Assessment/Plan Current Medications Generic Name Dose Route Start Last Admin Trade Name Freq PRN Reason Stop Dose Admin Aspirin 81 mg 02/04/17 10:00 02/04/17 10:05 Ecotrin - PO 81 mg DAILY [facility] Administration Calcium Acetate 667 mg 02/04/17 08:00 02/04/17 12:01 Phoslo - PO 667 mg TIDCM [facility] Administration Carvedilol 6.25 mg 02/04/17 10:00 02/04/17 10:05 Coreg - PO 6.25 mg DAILY [facility] Administration Gabapentin 100 mg 02/04/17 10:00 02/04/17 10:05 Neurontin - PO 100 mg DAILY [facility] Administration Heparin Sodium (Porcine) 5,000 unit 02/03/17 22:00 02/04/17 06:29 Heparin - SQ Not Given TID [facility] Levothyroxine Sodium 88 mcg 02/04/17 08:37 Synthroid - PO DAILY@0700 [facility] Impression 1. ESRD 2. HTN 3. DM 4. legally blind 5. anemia 6. chest pain 7. neuropathy 8. obesity Plan - HD today - called HD unit for orders, 4 hrs, 400 abf, dry weight 111 kg, f80 dialyzer, 15 gauge needles, aranesp 25 mcg q 2 weeks (last dose January 28) calcitriole 0.5 mcg on HD days, venofer 50 mg q week (due today) - cardio input appreciated - cardiac enzymes negative - stress test in am Dr Olivares
[2017-02-04] MEDS ORDERED: CALCITRIOL 0.25 MCG CAPSULE (FP) PO ONE (13:45)
--- NOTE | 2017-02-04 14:13 | EKG ---
Test Reason : Blood Pressure : / mmHG Vent. Rate : 061 BPM Atrial Rate : 061 BPM P-R Int : 148 ms QRS Dur : 080 ms QT Int : 414 ms P-R-T Axes : 027 047 032 degrees QTc Int : 416 ms NORMAL SINUS RHYTHM NORMAL ECG WHEN COMPARED WITH ECG OF 03-FEB-2017 14:27, NO SIGNIFICANT CHANGE WAS FOUND Confirmed by CAMILO MORENO MD ([id number]) on 02/04/2017 2:13:03 PM Referred By: Michell GAMBOA Confirmed By:CAMILO MORENO MD
[2017-02-04] MEDS ORDERED: SODIUM CHLORIDE IVPB ONE (14:30)
[2017-02-04] MEDS ORDERED: IRON SUCROSE IVPB ONE (14:30)
--- NOTE | 2017-02-04 14:50 | PN ---
Physical Exam: SUBJECTIVE: Patient seen and examined at bedside. OBJECTIVE: Vital Signs Period Temp Pulse Resp BP Sys/Aponte Pulse Ox Last 24 Hr 97.5 F-97.8 F 60-84 18-20 118-144/52-76 96-100 GENERAL: The patient is awake, alert, and fully oriented, in no acute distress. HEAD: Normal with no signs of trauma. EYES: fixed deviated gaze LUNGS: Breath sounds equal, clear to auscultation HEART: Regular rate and rhythm, S1, S2 without murmur, rub or gallop. ABDOMEN: Soft, nontender, nondistended, normoactive bowel sounds, no guarding, no rebound EXTREMITIES: 2+ pulses, warm, well-perfused, no edema. NEUROLOGICAL: Cranial nerves II through XII grossly intact. Normal speech, steady gait Laboratory Results - last 24 hr 02/03/17 02/03/17 02/03/17 17:15 17:15 20:28 WBC RBC Hgb Hct MCV MCHC RDW Plt Count MPV Neutrophils % Lymphocytes % Monocytes % Eosinophils % Basophils % Sodium 137 Potassium 4.2 Chloride 97 L Carbon Dioxide 29 D Anion Gap 11 BUN 48 H D Creatinine 8.3 H* Creat Clearance w eGFR 5.34 Random Glucose 149 H D Hemoglobin A1c % 7.7 H D Calcium 8.7 Phosphorus Magnesium Total Bilirubin 0.5 AST 15 ALT 26 D Alkaline Phosphatase 80 Creatine Kinase 80 68 Troponin I < 0.02 < 0.02 B-Natriuretic Peptide 1433.44 H Total Protein 7.1 Albumin 3.6 Triglycerides Cholesterol Total LDL Cholesterol HDL Cholesterol TSH 02/03/17 02/03/17 02/04/17 22:00 22:00 05:45 WBC RBC Hgb Hct MCV MCHC RDW Plt Count MPV Neutrophils % Lymphocytes % Monocytes % Eosinophils % Basophils % Sodium Potassium Chloride Carbon Dioxide Anion Gap BUN Creatinine Creat Clearance w eGFR Random Glucose Hemoglobin A1c % Calcium Phosphorus Magnesium Total Bilirubin AST ALT Alkaline Phosphatase Creatine Kinase Troponin I < 0.02 < 0.02 B-Natriuretic Peptide Total Protein Albumin Triglycerides Cholesterol Total LDL Cholesterol HDL Cholesterol TSH 3.90 H 02/04/17 02/04/17 05:45 05:45 WBC 5.2 RBC 3.69 Hgb 10.9 Hct 32.6 MCV 88.6 MCHC 33.5 RDW 16.5 H Plt Count 129 L D MPV 9.7 Neutrophils % 58.9 Lymphocytes % 31.6 D Monocytes % 7.1 Eosinophils % 1.9 D Basophils % 0.5 Sodium 137 Potassium 4.4 Chloride 100 Carbon Dioxide 26 Anion Gap 11 BUN 57 H Creatinine 9.5 H* Creat Clearance w eGFR 4.57 Random Glucose 231 H D Hemoglobin A1c % Calcium 8.9 Phosphorus 4.2 D Magnesium 2.3 Total Bilirubin 0.4 AST 20 D ALT 32 D Alkaline Phosphatase 72 Creatine Kinase Troponin I B-Natriuretic Peptide Total Protein 6.7 Albumin 3.4 Triglycerides 65 Cholesterol 149 Total LDL Cholesterol 87 HDL Cholesterol 48 TSH Active Medications Generic Name Dose Route Start Last Admin Trade Name Shawnq PRN Reason Stop Dose Admin Aspirin 81 mg 02/04/17 10:00 02/04/17 10:05 Ecotrin - PO 81 mg DAILY [facility] Administration Calcium Acetate 667 mg 02/04/17 08:00 02/04/17 12:01 Phoslo - PO 667 mg TIDCM [facility] Administration Carvedilol 6.25 mg 02/04/17 10:00 02/04/17 10:05 Coreg - PO 6.25 mg DAILY [facility] Administration Gabapentin 100 mg 02/04/17 10:00 02/04/17 10:05 Neurontin - PO 100 mg DAILY [facility] Administration Heparin Sodium (Porcine) 5,000 unit 02/03/17 22:00 02/04/17 06:29 Heparin - SQ Not Given TID [facility] Iron Sucrose 50 mg/ Sodium 97.5 mls @ 195 mls/hr 02/04/17 14:30 Chloride IVPB 02/04/17 14:59 ONCE ONE Levothyroxine Sodium 88 mcg 02/04/17 08:37 Synthroid - PO DAILY@0700 [facility] ASSESSMENT/PLAN: 41 year-old female with a significant PMH of HTN, HLD, 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 Placed on observation for mid-sternal chest pressure x 2 weeks. Chest pain --troponins neg x 4; CXR unremarkable; echo today, stress MIBI tomorrow --continue carvedilol, ASA ESRD on HD --for dialysis today IDDM Diabetic reinopathy/legal blindness --implanted insulin pump Hypertension --continue carvedilol Hyperlipidemia --not on statin Hypothyroidism --TSH 3.9 --increased levothyroxine to 88mcg --will need 6-week outpatient followup to check TSH F/E/N Fluids: PO intake adequate Electrolytes: replete as indicated Nutrition: diabetic diet DVT prophylaxis: subq heparin Disposition: continues to require observation. Full Code. Visit type - Emergency Visit Emergency Visit: Yes ED Registration Date: 02/03/17 Care time: The patient presented to the Emergency Department on the above date and was hospitalized for further evaluation of their emergent condition. - New Patient This patient is new to me today: Yes Date on this admission: 02/04/17 - Critical Care Critical Care patient: No
[2017-02-04] MEDS ORDERED: FUROSEMIDE INJECTION 100 MG in DEXTROSE 5%-WATER - 90 ML IVPB SCH (16:00)
[2017-02-05] MEDS: HEPARIN NA (PORCINE) 5,000 UNITS/ML 1ML VIAL SQ SCH ×2 (06:15→14:30)
[2017-02-05] MEDS: CALCIUM ACETATE 667 MG CAPSULE (FP) PO SCH ×2 (07:52→12:00)
[2017-02-05] MEDS ORDERED: DIPYRIDAMOLE 50 MG/10 ML VIAL IVPB ONE (09:47)
--- NOTE | 2017-02-05 12:19 | PN ---
Progress Note, Physician Chief Complaint: Pt denies chest pain or dyspnea. History of Present Illness: The patient is a 41-year-old woman with a significant past medical history of hypertension, hyperlipidemia, heart murmur, neuropathy, juvenile onset (age 17) insulin-dependent diabetes mellitus (on insulin pump; last Hgb A1C was 6.8), end -renal disease (on hemodialysis; MWF), hypothyroidism and legally blindness who presents to the emergency department for further evaluation of chest pain. She states that since Thursday, she has been experiencing intermittent mid-sternal hot-pressure/discomfort sensations that occasionally radiates to her back with associated lightheadedness, diaphoresis, palpitations and nausea. Initially, she attributed her symptoms to possible start of menopause, but now expresses concern her symptoms might be related to something different. She denies associated symptoms cough, fever, chills, headaches, neck pain, vomiting. Patient received full dialysis yesterday without complications, yesterday. She also reports her chronic shortness of breath on exertion, particularly when walking up a flight of stairs, but denies any recent change in her chronic symptoms. No leg pain/swelling. Allergies: No Known Drug Allergies. Past Surgical History: AV Fistula/Graft Social History: No ETOH and recreational drug use. Primary Care Physician: (Affiliated with Replaced by [facility]) Nephrology: Receives hemodialysis in [place] on [address] [place] [address]. [phone] - Current Medication List Current Medications: Active Medications Aspirin (Ecotrin -) 81 mg PO DAILY [facility] Last Admin: 02/04/17 10:05 Dose: 81 mg Calcium Acetate (Phoslo -) 667 mg PO TIDCM [facility] Last Admin: 02/05/17 07:52 Dose: Not Given Carvedilol (Coreg -) 6.25 mg PO DAILY [facility] Last Admin: 02/04/17 10:05 Dose: 6.25 mg Gabapentin (Neurontin -) 100 mg PO DAILY [facility] Last Admin: 02/04/17 10:05 Dose: 100 mg Heparin Sodium (Porcine) (Heparin -) 5,000 unit SQ TID [facility] Last Admin: 02/05/17 06:15 Dose: Not Given Levothyroxine Sodium (Synthroid -) 88 mcg PO DAILY@0700 [facility] Last Admin: 02/05/17 06:15 Dose: Not Given - Objective Vital Signs: Vital Signs Temperature 97.8 F 02/05/17 10:00 Pulse Rate 64 02/05/17 10:00 Respiratory Rate 18 02/05/17 10:00 Blood Pressure 157/86 02/05/17 10:00 O2 Sat by Pulse Oximetry (%) 100 02/05/17 06:00 Labs: CBC, BMP 02/04/17 05:45 02/04/17 05:45 Problem List - Problems (1) Chest pain Assessment/Plan: Stress Persantine MIBI: normal study. From a cardiac standpoint, pt may be followed as an outpatient. Code(s): R07.9 - CHEST PAIN, UNSPECIFIED (2) Diabetes mellitus Code(s): E11.9 - TYPE 2 DIABETES MELLITUS WITHOUT COMPLICATIONS (3) ESRD (end stage renal disease) on dialysis Assessment/Plan: Hemodialysis per spa consultant. Code(s): N18.6 - END STAGE RENAL DISEASE Z99.2 - DEPENDENCE ON RENAL DIALYSIS (4) Anemia Code(s): D64.9 - ANEMIA, UNSPECIFIED (5) Hypertension Code(s): I10 - ESSENTIAL (PRIMARY) HYPERTENSION (6) Hypothyroid Assessment/Plan: elevated TSH; free T4 WNL. Code(s): E03.9 - HYPOTHYROIDISM, UNSPECIFIED
[2017-02-05] MEDS ORDERED: DIPYRIDAMOLE STRESS TEST 50 MG in DEXTROSE 5%-WATER - 40 ML IVPB ONE (13:30)
[2017-02-05 13:39] LABS: FREE T4 1.17 ng/dl (0.76-1.46)
[2017-02-05] MEDS: GABAPENTIN 100 MG CAPSULE (FP) PO SCH (14:42)
[2017-02-05] MEDS: ASPIRIN COATED 81 MG TABLET.EC PO SCH (14:43)
[2017-02-05] MEDS: CARVEDILOL 6.25 MG TABLET (FP) PO SCH (14:43)
[2017-02-05 15:15] VITALS: BP 166/85; PULSE 62; TEMP 98.4
--- NOTE | 2017-02-05 15:58 | PN ---
Progress Note, Physician History of Present Illness: Pt seen and examined at bedside. She is awake and alert. She denies chest pain. - Current Medication List Current Medications: Active Medications Aspirin (Ecotrin -) 81 mg PO DAILY [facility] Last Admin: 02/05/17 14:43 Dose: 81 mg Calcium Acetate (Phoslo -) 667 mg PO TIDCM [facility] Last Admin: 02/05/17 12:00 Dose: Not Given Carvedilol (Coreg -) 6.25 mg PO DAILY [facility] Last Admin: 02/05/17 14:43 Dose: 6.25 mg Gabapentin (Neurontin -) 100 mg PO DAILY [facility] Last Admin: 02/05/17 14:42 Dose: 100 mg Heparin Sodium (Porcine) (Heparin -) 5,000 unit SQ TID [facility] Last Admin: 02/05/17 14:30 Dose: Not Given Levothyroxine Sodium (Synthroid -) 88 mcg PO DAILY@0700 [facility] Last Admin: 02/05/17 06:15 Dose: Not Given - Objective Vital Signs: Vital Signs Temperature 98.4 F 02/05/17 15:13 Pulse Rate 62 02/05/17 15:13 Respiratory Rate 20 02/05/17 15:13 Blood Pressure 166/85 02/05/17 15:13 O2 Sat by Pulse Oximetry (%) 97 02/05/17 13:00 Constitutional: Yes: Calm Eyes: Yes: Conjunctiva Clear HENT: Yes: Normocephalic Cardiovascular: Yes: S1, S2 Respiratory: Yes: CTA Bilaterally Gastrointestinal: Yes: Soft, Abdomen, Obese Genitourinary: Yes: WNL Edema: No Neurological: Yes: Oriented Psychiatric: Yes: Oriented Labs: CBC, BMP 02/04/17 05:45 02/04/17 05:45 Problem List - Problems (1) Chest pain Code(s): R07.9 - CHEST PAIN, UNSPECIFIED (2) Diabetes mellitus Code(s): E11.9 - TYPE 2 DIABETES MELLITUS WITHOUT COMPLICATIONS (3) ESRD (end stage renal disease) on dialysis Code(s): N18.6 - END STAGE RENAL DISEASE Z99.2 - DEPENDENCE ON RENAL DIALYSIS (4) Anemia Code(s): D64.9 - ANEMIA, UNSPECIFIED (5) Hypertension Code(s): I10 - ESSENTIAL (PRIMARY) HYPERTENSION (6) Hypothyroid Code(s): E03.9 - HYPOTHYROIDISM, UNSPECIFIED Assessment/Plan Current Medications Generic Name Dose Route Start Last Admin Trade Name Feliciano PRN Reason Stop Dose Admin Aspirin 81 mg 02/04/17 10:00 02/05/17 14:43 Ecotrin - PO 81 mg DAILY [facility] Administration Calcium Acetate 667 mg 02/04/17 08:00 02/05/17 12:00 Phoslo - PO Not Given TIDCM [facility] Carvedilol 6.25 mg 02/04/17 10:00 02/05/17 14:43 Coreg - PO 6.25 mg DAILY [facility] Administration Gabapentin 100 mg 02/04/17 10:00 02/05/17 14:42 Neurontin - PO 100 mg DAILY [facility] Administration Heparin Sodium (Porcine) 5,000 unit 02/03/17 22:00 02/05/17 14:30 Heparin - SQ Not Given TID [facility] Levothyroxine Sodium 88 mcg 02/04/17 08:37 02/05/17 06:15 Synthroid - PO Not Given DAILY@0700 [facility] Impression 1. ESRD 2. HTN 3. DM 4. legally blind 5. anemia 6. chest pain 7. neuropathy 8. obesity Plan - pt tolerated HD yesterday - she has HD scheduled as outpt tomorrow - HD tomorrow - follow up stress test result - will follow while in hospital HD ORDERS 4 hrs, 400 abf, dry weight 111 kg, f80 dialyzer, 15 gauge needles, aranesp 25 mcg q 2 weeks (last dose January 28) calcitriole 0.5 mcg on HD days, venofer 50 mg q week (due today) Dr Olivares
--- NOTE | 2017-02-05 21:47 | DS ---
Physical Exam: SUBJECTIVE: Patient seen and examined OBJECTIVE: Vital Signs Period Temp Pulse Resp BP Sys/Aponte Pulse Ox Last 24 Hr 97.5 F-98.5 F 59-65 18-20 104-166/56-86 97-100 PHYSICAL EXAM GENERAL: The patient is awake, alert, and fully oriented, in no acute distress. HEAD: Normal with no signs of trauma. EYES: fixed deviated gaze LUNGS: Breath sounds equal, clear to auscultation HEART: Regular rate and rhythm, S1, S2 without murmur, rub or gallop. ABDOMEN: Soft, nontender, nondistended, normoactive bowel sounds, no guarding, no rebound EXTREMITIES: 2+ pulses, warm, well-perfused, no edema. NEUROLOGICAL: Cranial nerves II through XII grossly intact. Normal speech, steady gait LABS CBCD WBC 5.2 K/mm3 (4.0-10.0) 02/04/17 05:45 RBC 3.69 M/mm3 (3.60-5.2) 02/04/17 05:45 Hgb 10.9 GM/dL (10.7-15.3) 02/04/17 05:45 Hct 32.6 % (32.4-45.2) 02/04/17 05:45 MCV 88.6 fl (80-96) 02/04/17 05:45 MCHC 33.5 g/dl (32.0-36.0) 02/04/17 05:45 RDW 16.5 % (11.6-15.6) H 02/04/17 05:45 Plt Count 129 K/MM3 (134-434) L D 02/04/17 05:45 MPV 9.7 fl (7.5-11.1) 02/04/17 05:45 CMP Sodium 137 mmol/L (136-145) 02/04/17 05:45 Potassium 4.4 mmol/L (3.5-5.1) 02/04/17 05:45 Chloride 100 mmol/L (98-107) 02/04/17 05:45 Carbon Dioxide 26 mmol/L (21-32) 02/04/17 05:45 Anion Gap 11 (8-16) 02/04/17 05:45 BUN 57 mg/dL (7-18) H 02/04/17 05:45 Creatinine 9.5 mg/dL (0.55-1.02) H* 02/04/17 05:45 Creat Clearance w eGFR 4.57 (>60) 02/04/17 05:45 Calcium 8.9 mg/dL (8.5-10.1) 02/04/17 05:45 Total Bilirubin 0.4 mg/dL (0.2-1.0) 02/04/17 05:45 AST 20 U/L (15-37) D 02/04/17 05:45 ALT 32 U/L (12-78) D 02/04/17 05:45 Alkaline Phosphatase 72 U/L (45-117) 02/04/17 05:45 Total Protein 6.7 g/dl (6.4-8.2) 02/04/17 05:45 Albumin 3.4 g/dl (3.4-5.0) 02/04/17 05:45 HOSPITAL COURSE: Date of Admission:02/03/17 Date of Discharge: 02/05/17 41 year-old female with a significant PMH of HTN, HLD, 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 Placed on observation for mid-sternal chest pressure x 2 weeks. Chest pain --ACS ruled out: troponins neg x 4; CXR unremarkable; echo: LV normal, RV normal, BLAE, mild MR, mild TR; stress MIBI normal study --continued carvedilol, ASA ESRD on HD --dialysis continued IDDM Diabetic reinopathy/legal blindness --implanted insulin pump functioning Hypertension --continued carvedilol Hyperlipidemia --not on statin Hypothyroidism --TSH 3.9 --increased levothyroxine to 88mcg --will need 6-week outpatient followup to check TSH Minutes to complete discharge: 35 Discharge Summary Reason For Visit: CHEST PAIN Condition: Improved - Instructions Diet, Activity, Other Instructions: A prescription has been sent to your pharmacy for a higher dose of levothyroxine. You should continue to take this higher dose for 6 weeks and then see your primary care provider to have your thyroid levels checked. Return to the emergency department for any new or worsening symptoms. Referrals: Miguel Ángel Mcmullen MD [Staff Physician] - García Olivares MD [Staff Physician] - Disposition: HOME - Home Medications Comprehensive Discharge Medication List: Ambulatory Orders Calcium Acetate [Phoslo -] 667 mg PO TID 09/17/15 Gabapentin [Neurontin] 100 mg PO DAILY 09/17/15 Carvedilol [Coreg -] 6.25 mg PO DAILY 02/03/17 Insulin Pump/Infus. Set/Meter [Accu-Chek Combo System] 1 each [facility] ASDIR 02/03/17 Levothyroxine [Synthroid -] 88 mcg PO DAILY@0700 #30 tablet 02/05/17 This patient is new to me today: No Emergency Visit: Yes ED Registration Date: 02/03/17 Care time: The patient presented to the Emergency Department on the above date and was hospitalized for further evaluation of their emergent condition. Critical Care patient: No - Discharge Referral Referred to [facility] Med [facility].C.: No
[2017-02-06 06:06] LABS: HEP B SURFACE AB Reactive (.)
== END 2017-02-05 16:55 | disposition home or self-care (01) ==
LOC: JER 14:06 → JERBED 16:52 → J4W 21:26
PROVIDERS: ADMIT Internal Medicine; ATTEND Nurse Practitioner Acute Care
PROC: 5A1D00Z (ICD-10-PCS; principal; 2017-02-03)
DX: R07.89 Other chest pain (principal); E78.5 Hyperlipidemia, unspecified; G62.9 Polyneuropathy, unspecified; E03.9 Hypothyroidism, unspecified; I12.0 Hypertensive chronic kidney disease with stage 5 chronic kidney disease or end stage renal disease; N18.6 End stage renal disease; H54.8 Legal blindness, as defined in USA; E11.319 Type 2 diabetes mellitus with unspecified diabetic retinopathy without macular edema; E11.40 Type 2 diabetes mellitus with diabetic neuropathy, unspecified; E66.8 Other obesity; Z68.41 Body mass index [BMI] 40.0-44.9, adult; Z71.3 Dietary counseling and surveillance; Z79.4 Long term (current) use of insulin
CPT/HCPCS: 36415; 71010-TC; 78452-TC; 80053; 80061; 82550; 83036; 83721; 83735; 83880; 84100; 84439; 84443; 84484; 85025; 85027; 86704; 86706; 86708; 87340; 93005; 93010; 93017; 93306-TC; 99284-25; A9502; G0378; J1245; J1756

== ENCOUNTER 2017-08-25 13:03 | Emergency (ER) | payer OTHER ==
[2017-08-25 13:21] VITALS: BP 157/81; PULSE 71; TEMP 98.4; BMI 44.3
--- NOTE | 2017-08-25 14:29 | PDOC ---
History of Present Illness - General Chief Complaint: Psychiatric Stated Complaint: ANXIETY Time Seen by Provider: 08/25/17 14:22 History Source: Patient Exam Limitations: No Limitations - History of Present Illness Initial Comments: My chief complaint: Anxiety Story of present illness: Patient is a 42-year-old female with a history of insulin-dependent diabetes, hypertension, hyperlipidemia, hypothyroidism and end -stage renal failure here today complaining of anxiety for the last 2 weeks. Patient reports that she gets dialysis 3 times a week. Patient reports that 2 weeks ago she found out that her was cheating on her and has been very upset. Patient has been worried about her future in her life has been feeling very restless has had slightly decreased appetite and decreased ability to sleep through the night stating approximately 3 hours of sleep at night as compared to 8 hours in the past. Patient denies any suicidal ideations or any homicidal ideations. Patient reports that she just celebrated her seventh year of marriage on 08/07/2017. Patient denies any previous history of any psychiatric illness or hospitalizations or any suicide attempts. Patient reports that she just needs something to calm down and lessen her anxiety. Patient reports that she is close to her mother and her [id number] and they' re aware of what has happened. Patient's was able to talk to her about what had been happening and does not want to resolve the marriage presently. Patient does not go to counseling. Timing/Duration: other (2 weesk ) Severity: moderate Associated Symptoms: anxiety, insomnia, other (sadness for 2 weeks ) Past History - Past Medical History Allergies/Adverse Reactions: Allergies No Known Allergies Allergy (Verified 08/25/17 13:16) Home Medications: Ambulatory Orders Calcium Acetate [Phoslo -] 667 mg PO TID 09/17/15 Gabapentin [Neurontin] 100 mg PO DAILY 09/17/15 Carvedilol [Coreg -] 6.25 mg PO DAILY 02/03/17 Insulin Pump/Infus. Set/Meter [Accu-Chek Combo System] 1 each [facility] ASDIR 02/03/17 Levothyroxine [Synthroid -] 88 mcg PO DAILY@0700 #30 tablet 02/05/17 Clonazepam [KlonoPIN] 0.5 mg PO DAILY PRN #10 tablet MDD 1 08/25/17 Psychosocial History: Yes: diabetes, hypertension, other (hypothyroidism, ESRF, legally blind) Surgical History: Yes: Other (shunt left arm, rt. eye diabetic retinopathy) - Immunization History Immunization Up to Date: Yes Tetanus Status: Less than 5 years - Social History Smoking Status: Never smoked *Review of Systems - Review of Systems Able to Perform ROS?: Yes Constitutional: No: Symptoms Reported HEENTM: No: Symptoms Reported Respiratory: No: Symptoms reported Cardiac (ROS): No: Symptoms Reported ABD/GI: No: Symptoms Reported Integumentary: No: Symptoms Reported Psychiatric: Yes: Anxiety, Frequent Crying, Stressors ( cheating ), Sleep Pattern Change (over the ladst 2 weeks after finding out that her has been cheating on her), Other (feels sad for last 2 weeks, denies Suicidal or homicidal ideations, patient is cooperative Chad speaks about stress due to her cheating on her and her finding out approximately 2 weeks ago, patient has been sad crying often however denies wanting to hurt herself or anyone else. Patient denies any previous psychiatric history. Patient has not been able to sleep well getting only 3-4 hours of sleep a night for the last 2 weeks. Patient is eating. Patient reports that energy and motivation is less than usual. Patient's speech is normal rate and tone. Patient's judgment and insight is good. Patient ambulates with cane) Endocrine: Yes: Other (on insulin pump ) Hematologic/Lymphatic: No: Symptoms Reported *Physical Exam - Vital Signs Last Vital Signs Temp Pulse Resp BP Pulse Ox 98.4 F 71 16 157/81 100 08/25/17 13:16 08/25/17 13:16 08/25/17 13:16 08/25/17 13:16 08/25/17 13:16 - Physical Exam General Appearance: Yes: Appropriately Dressed Respiratory/Chest: positive: Lungs Clear, Normal Breath Sounds Cardiovascular: positive: Regular Rhythm, Regular Rate, S1, S2 Integumentary: positive: Normal Color Neurologic: positive: Alert, Responsive Plan - Consult/PCP Case Discussed with Personal Care Physician Not on Staff:: DR. GALAVIZ PCP AT [facility] at [phone] was informed of the patient's anxiety and was okay with plan to give Klonopin 0.5 mg daily Case discussed with consulting physician: Aida Cui - Additional Consults Reason/Comments: DR. ALBA RECOMMENDED KLONOPIN 0.5MG DAILY PRN ANXIETY FOR 10 DAYS - Critical Care Time Comments: 08/25/17 16:15 PT. DOES NOT WANT KLONOPIN TO BE ADMINISTERED HERE NOW WILL TAKE AT HOME TO HELP WITH SLEEP PT. IS WITH HER [id number] *DC/Admit/Observation/Transfer Diagnosis at time of Disposition: Anxiety as acute reaction to gross stress - Discharge Dispostion Disposition: HOME Condition at time of disposition: Stable - Prescriptions Prescriptions: Clonazepam [KlonoPIN] 0.5 mg PO DAILY PRN #10 tablet MDD 1 PRN Reason: Anxiety - Patient Instructions Additional Instructions: Follow-up with your primary care provider within the next couple of days You may obtain counseling at [facility] [phone] Another counseling site [facility] at [phone] Return to emergency room if symptoms worsen or any thoughts to harm herself or anyone else or anxiety worsens or other new symptoms develop Patient voiced understanding of discharge instructions and all questions were answered Thank you for coming to [facility] emergency room today
== END 2017-08-25 15:30 | disposition home or self-care (01) ==
LOC: JERFT 13:03
DX: F41.1 Generalized anxiety disorder (principal); E03.9 Hypothyroidism, unspecified; E78.5 Hyperlipidemia, unspecified; E11.22 Type 2 diabetes mellitus with diabetic chronic kidney disease; I12.0 Hypertensive chronic kidney disease with stage 5 chronic kidney disease or end stage renal disease; N18.6 End stage renal disease; Z99.2 Dependence on renal dialysis; Z79.4 Long term (current) use of insulin
CPT/HCPCS: 99281-25